=== PATIENT | male | born 1965 | race Two or more races ===

== ENCOUNTER 2017-01-24 20:44 | Emergency (ER) | payer SELFPAY ==
[2017-01-24 21:03] VITALS: BMI 32.5
[2017-01-24 21:07] VITALS: BP 60/20; PULSE 0; RESP 0; TEMP 99.1
--- NOTE | 2017-01-24 21:25 | ED PDOC ---
Arrival/HPI - General Chief Complaint: Cardiac Arrest Time Seen by Provider: 01/24/17 21:02 Historian: EMS, Police - History of Present Illness Narrative History of Present Illness (Text): 01/24/17 19:46 Patient presented brought in by EMS status post cardiac arrest, past medical history unknown clearly at this time. Patient was noted to be sleeping in his car, witnessed by his neighbor to be at the scene for over an hour. Police and EMS arrived at the scene and patient found in full cardiac arrest. Patient was in asystole and pulseless. CPR was initiated and patient was intubated in the field. ACLS protocol was started, multiple rounds of Epi were given prior to arrival, however patient remained asystole as per EMS. On arrival to ER, patient noted to be cyanotic/mottled, ET tube in place, pulseless, and apneic. Patient bagged with equal breath sounds bilaterally, left lower leg IO in place. Patient placed on monitor, noted to be in asystole. ACLS protocol continued. Time/Duration: Prior to Arrival Symptom Onset: Sudden Symptom Course: Unchanged Activities at Onset: Light Context: Street Past Medical History - Provider Review Nursing Documentation Reviewed: Yes - Psychiatric Hx Substance Use: No - Anesthesia Hx Anesthesia: No Family/Social History - Physician Review Nursing Documentation Reviewed: Yes Family/Social History: Unknown Family HX Smoking Status: Unknown If Ever Smoked Hx Alcohol Use: No Hx Substance Use: No Allergies/Home Meds Allergies/Adverse Reactions: Allergies Unobtainable Allergy (Verified 01/24/17 21:03) Home Medications: Home Meds Medication Instructions Recorded Confirmed Unobtainable 01/24/17 01/24/17 Review of Systems - Review of Systems Systems not reviewed;Unavailable: Other (Cardiac arrest) Physical Exam Vital Signs Reviewed: Yes Vital Signs Temp Pulse Resp BP 01/24/17 21:06 99.1 F 0 L 0 L 60/20 L Temperature: Afebrile Pulse: Pulseless Respiratory Rate: Apneic Pain Distress: None Mental Status: Positive for: other (Unresponsive) Finger Stick Blood Glucose: 144 - Systems Exam Head: Present: Atraumatic, Normocephalic, Other (Cyanotic discoloration to head) Pupils: Present: Other (Pupils fixed and dilated) Conjunctiva: Present: Normal Mouth: Present: Other (ET tube) Respiratory/Chest: Present: Other (Equal breath sounds bilateral, ET tube in place) Cardiovascular: No: Regular Rate and Rhythm (No rate, no rhythm), Normal S1, S2 Abdomen: Present: Other (Soft). No: Distention Upper Extremity: No: Edema Lower Extremity: Present: Other (Mottling noted to bilateral lower extremities, left IO in place). No: Edema Neurological: Present: Other (Neurologically unresponsive to all painful stimulation). No: GCS=15 Skin: No: Normal Color Medical Decision Making ED Course and Treatment: 01/24/17 19:46 Impression: Pt brought in s/p cardiac arrest, ET tube/left lower leg IO in place, CPR in progress. Progress Notes: ACLS protocol continued on arrival to Emergency department. Pt placed on monitor , noted to be in asystole, pulseless, and apneic. Pt remained asystolic/ pulseless despite multiple attempt at chemical resuscitation. Pt subsequently pronounced at 20:59 following all efforts at resuscitation proved unsuccessful. Police present in Emergency room, attempts to confirm pt's identity in progress. architectural examiner to be notified. - Scribe Statement The provider has reviewed the documentation as recorded by the Scribe Maris Ulrich Provider Scribe Attestation: All medical record entries made by the Scribe were at my direction and personally dictated by me. I have reviewed the chart and agree that the record accurately reflects my personal performance of the history, physical exam, medical decision making, and the department course for this patient. I have also personally directed, reviewed, and agree with the discharge instructions and disposition. Disposition/Present on Arrival - Present on Arrival Any Indicators Present on Arrival: No History of DVT/PE: No History of Uncontrolled Diabetes: No Urinary Catheter: No History of Decub. Ulcer: No History Surgical Site Infection Following: None - Disposition Have Diagnosis and Disposition been Completed?: Yes Diagnosis: Cardiac arrest Disposition: WITH WITHOUT AUTOPSY Disposition Time: 20:59 Condition: Forms: [employer] (I[place]ic)
== END 2017-01-24 22:50 ==
LOC: ED 20:44
DX: I46.9 Cardiac arrest, cause unspecified (principal)